=== PATIENT | female | born 1980 | race Caucasian/White ===

== ENCOUNTER 2020-07-10 03:59 | Emergency (ER) | payer MEDICAID, OTHER ==
[~2020-07-10] VITALS: Ht 162.6 cm; Wt 94.0 kg
[~2020-07-10 03:59] MED LIST: LORA-250; LORA0.5T2
[2020-07-10] MEDS ORDERED: DIPHENHYDRAMINE 50MG CAPSULE PO ONE (04:15)
[2020-07-10 05:10] VITALS: BP 137/55
== END 2020-07-10 05:49 | disposition home or self-care (01) ==
LOC: ER 03:59
DX: F41.9 Anxiety disorder, unspecified (principal); F15.10 Other stimulant abuse, uncomplicated; F17.210 Nicotine dependence, cigarettes, uncomplicated
CPT/HCPCS: 93005; 99283; Q0163

== ENCOUNTER 2020-07-10 08:31 | Emergency (ER) | payer MEDICAID ==
[~2020-07-10] VITALS: Ht 167.6 cm; Wt 110.0 kg
[2020-07-10 08:35] VITALS: BP 128/84
[2020-07-10] MEDS ORDERED: LORAZEPAM 0.5MG TABLET PO ONE (09:15)
== END 2020-07-10 10:15 | disposition home or self-care (01) ==
LOC: ER 08:31
DX: F41.9 Anxiety disorder, unspecified (principal); F15.10 Other stimulant abuse, uncomplicated
CPT/HCPCS: 99283

== ENCOUNTER 2020-07-10 12:51 | Emergency (ER) | payer MEDICAID ==
[~2020-07-10] VITALS: Ht 167.6 cm; Wt 104.5 kg
[2020-07-10 13:45] VITALS: BP 115/77
== END 2020-07-10 14:02 | disposition home or self-care (01) ==
LOC: ER 12:51
DX: F41.9 Anxiety disorder, unspecified (principal); F15.10 Other stimulant abuse, uncomplicated
CPT/HCPCS: 99283

== ENCOUNTER 2020-07-15 04:28 | Emergency (ER) | payer MEDICAID ==
[~2020-07-15] VITALS: Ht 170.2 cm; Wt 90.0 kg
[2020-07-15] MEDS ORDERED: LORAZEPAM 1MG TABLET PO ONE ×2 (05:00→13:30)
[2020-07-15 13:21] VITALS: BP 132/85
== END 2020-07-15 13:49 | disposition home or self-care (01) ==
LOC: ER 04:28
DX: F41.9 Anxiety disorder, unspecified (principal); F15.10 Other stimulant abuse, uncomplicated
CPT/HCPCS: 93005; 99285

== ENCOUNTER 2020-08-31 03:06 | Emergency (ER) | payer MEDICAID ==
[~2020-08-31] VITALS: Ht 170.2 cm; Wt 122.0 kg
[2020-08-31] MEDS ORDERED: SODIUM CHLORIDE 0.9% 1,000 ML IV ONE (03:15)
[2020-08-31 03:42] LABS: BASOPHILS % 1.2 % (0.0-2.0); EOSINOPHILS % 4.9 % (0.0-5.0); HEMATOCRIT. 37.9 % (36.0-48.0); HEMOGLOBIN. 12.1 g/dL (12.0-16.0); LYMPHOCYTES % 31.9 % (20.0-50.0); MEAN CORPUSCULAR HEMOGLOBIN 25.7 pg (28.0-32.0); MEAN CORPUSCULAR VOLUME 80.2 fL (81.0-99.0); MEAN PLATELET VOLUME 8.4 fl (7.4-10.4); MONOCYTES % 7.1 % (2.0-8.0); NEUTROPHILS % 54.9 % (40.0-76.0); PLATELET 344 x1000/uL (130-400); RED BLOOD CELL COUNT 4.73 mill/uL (4.2-5.4); RED CELL DISTRIBUTION WIDTH 18.6 % (11.6-14.6)
[2020-08-31 03:44] LABS: CHLORIDE 107 mEq/L (98-107)
[2020-08-31 03:48] LABS: ETHANOL BLOOD < 10 mg/dL
[2020-08-31 03:51] LABS: HCG SCREEN NEGATIVE
[2020-08-31 04:06] LABS: CLARITY URINE CLOUDY (CLEAR); COLOR URINE YELLOW (YELLOW); KETONES URINE NEGATIVE (NEGATIVE); LEUKOCYTE ESTERASE URINE 1+ (NEGATIVE); NITRITE URINE NEGATIVE (NEGATIVE); OCCULT BLOOD URINE NEGATIVE (NEGATIVE); PH URINE 5.5 (4.5-8.0); PROTEIN URINE NEGATIVE (NEGATIVE); SPECIFIC GRAVITY URINE 1.028 (1.005-1.030)
[2020-08-31] MEDS ORDERED: LORAZEPAM 2MG/ML CPJ IV NR (04:15)
[2020-08-31 04:16] LABS: *BENZODIAZEPINES SCREEN URINE NEGATIVE (NEGATIVE); *COCAINE SCREEN URINE NEGATIVE (NEGATIVE)
[2020-08-31 04:17] LABS: *BARBITURATES SCREEN URINE NEGATIVE (NEGATIVE); CANNABINOID URINE SCREEN NEGATIVE (NEGATIVE); METHADONE URINE SCREEN NEGATIVE (NEGATIVE); OPIATES URINE SCREEN NEGATIVE (NEGATIVE); PHENCYCLIDINE URINE SCREEN NEGATIVE (NEGATIVE)
[2020-08-31 04:24] LABS: *AMPHETAMINES SCREEN URINE PRESUMTIVE POSITIVE (NEGATIVE)
[2020-08-31 05:15] VITALS: BP 127/71
[2020-08-31] MEDS ORDERED: CEPH500T MT (05:23)
[2020-08-31] MEDS ORDERED: CEPHALEXIN 250MG CAPSULE PO NR (05:30)
== END 2020-08-31 05:51 | disposition home or self-care (01) ==
LOC: ER 03:06
DX: F15.90 Other stimulant use, unspecified, uncomplicated (principal); F41.9 Anxiety disorder, unspecified; R44.0 Auditory hallucinations; R03.0 Elevated blood-pressure reading, without diagnosis of hypertension; N39.0 Urinary tract infection, site not specified; F17.200 Nicotine dependence, unspecified, uncomplicated
CPT/HCPCS: 36415; 80053; 80305; 80307; 80320; 80329; 81003; 81025; 84703; 85025; 93005; 96361; 96374; 99284; J2060; J7030; G0480

== ENCOUNTER 2020-09-19 08:29 | Emergency (ER) | payer MEDICAID ==
[~2020-09-19] VITALS: Ht 165.1 cm; Wt 68.0 kg
[~2020-09-19 08:29] MED LIST changes: +CEPH500T MT
[2020-09-19 08:31] VITALS: BP 118/79
== END 2020-09-19 09:35 | disposition home or self-care (01) ==
LOC: ER 08:29
DX: F41.9 Anxiety disorder, unspecified (principal); F41.0 Panic disorder [episodic paroxysmal anxiety]
CPT/HCPCS: 99283

== ENCOUNTER 2020-09-23 06:23 | Emergency (ER) | payer MEDICAID ==
[~2020-09-23] VITALS: Ht 165.1 cm; Wt 92.0 kg
[2020-09-23] MEDS ORDERED: LORA-249 PO (07:13)
[2020-09-23] MEDS ORDERED: LORAZEPAM 0.5MG TABLET PO ONE (07:15)
[2020-09-23 07:50] VITALS: BP 120/80
== END 2020-09-23 08:33 | disposition home or self-care (01) ==
LOC: ER 06:23
DX: F41.9 Anxiety disorder, unspecified (principal); F15.10 Other stimulant abuse, uncomplicated
CPT/HCPCS: 81025; 99283; Z7610

== ENCOUNTER 2020-10-15 18:55 | Emergency (ER) | payer MEDICAID ==
[~2020-10-15] VITALS: Ht 160 cm; Wt 83.0 kg
[~2020-10-15 18:55] MED LIST changes: +LORA-249 PO
[2020-10-15] MEDS ORDERED: LORAZEPAM 0.5MG TABLET PO ONE (19:30)
[2020-10-15 20:15] VITALS: BP 134/74
== END 2020-10-15 20:17 | disposition home or self-care (01) ==
LOC: ER 19:35
DX: F41.9 Anxiety disorder, unspecified (principal)
CPT/HCPCS: 99283

== ENCOUNTER 2021-04-01 23:58 | Emergency (ER) | payer MEDICAID ==
[~2021-04-01] VITALS: Ht 162.6 cm; Wt 136.0 kg
[2021-04-02 01:00] VITALS: BP 121/71
[2021-04-02] MEDS ORDERED: LORAZEPAM 0.5MG TABLET PO ONE (01:15)
[2021-04-02] MEDS ORDERED: LORA-249 PO (01:37)
== END 2021-04-02 01:59 | disposition home or self-care (01) ==
LOC: ER 23:58
DX: F41.9 Anxiety disorder, unspecified (principal); F15.10 Other stimulant abuse, uncomplicated
CPT/HCPCS: 99283

== ENCOUNTER 2021-09-18 13:22 | Emergency (ER) | payer MEDICAID ==
[~2021-09-18] VITALS: Ht 170.2 cm; Wt 100.0 kg
[2021-09-18 14:12] LABS: BASOPHILS % 0.8 % (0.0-2.0); HEMATOCRIT. 36.9 % (36.0-48.0); HEMOGLOBIN. 12.4 g/dL (12.0-16.0); LYMPHOCYTES % 15.7 % (20.0-50.0); MEAN CORPUSCULAR HEMOGLOBIN 27.7 pg (28.0-32.0); MEAN CORPUSCULAR VOLUME 82.8 fL (81.0-99.0); MEAN PLATELET VOLUME 8.2 fl (7.4-10.4); MONOCYTES % 7.1 % (2.0-8.0); NEUTROPHILS % 75.4 % (40.0-76.0); PLATELET 313 x1000/uL (130-400); RED BLOOD CELL COUNT 4.46 mill/uL (4.2-5.4); RED CELL DISTRIBUTION WIDTH 16.7 % (11.6-14.6)
[2021-09-18 14:24] LABS: CHLORIDE 109 mEq/L (98-107)
[2021-09-18 14:30] LABS: HCG SCREEN NEGATIVE
[2021-09-18 14:31] LABS: ETHANOL BLOOD < 10 mg/dL
[2021-09-18] MEDS ORDERED: LORAZEPAM 1MG TABLET PO ONE (15:15)
[2021-09-18] MEDS ORDERED: POTASSIUM CHLORIDE 20MEQ TABLET SR PO ONE (17:00)
[2021-09-18 17:25] LABS: CLARITY URINE CLEAR (CLEAR); COLOR URINE YELLOW (YELLOW); KETONES URINE TRACE (NEGATIVE); LEUKOCYTE ESTERASE URINE 1+ (NEGATIVE); NITRITE URINE NEGATIVE (NEGATIVE); OCCULT BLOOD URINE NEGATIVE (NEGATIVE); PH URINE 5.5 (4.5-8.0); PROTEIN URINE TRACE (NEGATIVE); SPECIFIC GRAVITY URINE 1.028 (1.005-1.030)
[2021-09-18 17:46] LABS: *AMPHETAMINES SCREEN URINE NEGATIVE (NEGATIVE); *BARBITURATES SCREEN URINE NEGATIVE (NEGATIVE); *BENZODIAZEPINES SCREEN URINE NEGATIVE (NEGATIVE); *COCAINE SCREEN URINE NEGATIVE (NEGATIVE); CANNABINOID URINE SCREEN NEGATIVE (NEGATIVE); METHADONE URINE SCREEN NEGATIVE (NEGATIVE); OPIATES URINE SCREEN NEGATIVE (NEGATIVE); PHENCYCLIDINE URINE SCREEN NEGATIVE (NEGATIVE)
[2021-09-18] MEDS ORDERED: HALOPERIDOL LACTATE 5MG/ML VIAL IM ONE (20:30)
[2021-09-18] MEDS ORDERED: LORAZEPAM 2MG/ML CPJ IM ONE (20:30)
[2021-09-18] MEDS ORDERED: SODIUM CHLORIDE 0.9% 1,000 ML IV ONE (20:30)
[2021-09-18] MEDS ORDERED: CEFTRIAXONE 1 G PREMIX 50 ML IV ONE (20:30)
[2021-09-19] MEDS ORDERED: ARIPIPRAZOLE 5MG TABLET PO SCH (10:00)
[2021-09-19] MEDS ORDERED: LORAZEPAM 0.5MG TABLET PO NR (13:15)
[2021-09-19] MEDS ORDERED: LORAZEPAM 2MG/ML CPJ IM ONE (18:00)
[2021-09-19] MEDS ORDERED: OLANZAPINE 10 MG/VIAL IM ONE (18:00)
[2021-09-19 23:57] VITALS: BP 138/80
== END 2021-09-20 00:25 ==
LOC: ER 13:22
DX: F23 Brief psychotic disorder (principal); F41.9 Anxiety disorder, unspecified; E87.6 Hypokalemia; N39.0 Urinary tract infection, site not specified; F91.8 Other conduct disorders; R45.1 Restlessness and agitation; Z20.822 Contact with and (suspected) exposure to COVID-19; Z75.1 Person awaiting admission to adequate facility elsewhere
CPT/HCPCS: 36415; 70450; 80053; 80305; 80320; 81003; 84703; 85025; 96365; 96366; 96372; 99285; C9803; J0696; J1630; J2060; J3490; J7030; U0003; U0005; G0480